=== PATIENT | male | born 1945 | race Caucasian/White ===

== ENCOUNTER 2022-01-29 14:15 | Emergency (ER) | payer OTHER, BC ==
[2022-01-29 14:40] VITALS: BP 131/75; PULSE 66; RESP 16; TEMP 97.8; BMI 26.1
[2022-01-29] MEDS ORDERED: ACETAMINOPHEN 325 MG TABLET (FP) PO ONE (15:16)
[2022-01-29] MEDS ORDERED: ACETAMINOPHEN 325 MG TABLET (FP) ONE (15:24)
== END 2022-01-29 16:50 | disposition home or self-care (01) ==
LOC: JERFT 14:15
DX: S01.21XA Laceration without foreign body of nose, initial encounter (principal); J34.2 Deviated nasal septum; W01.198A Fall on same level from slipping, tripping and stumbling with subsequent striking against other object, initial encounter
CPT/HCPCS: 70160-TC-FY; 99283-25

== ENCOUNTER 2022-05-24 22:53 | Inpatient (IN) | payer OTHER, BC ==
[2022-05-24] MEDS ORDERED: ACETAMINOPHEN 1000 MG/100 ML BAG IVPB ONE (23:10)
[2022-05-24] MEDS ORDERED: LACTATED RINGERS SOLUTION 1000 ML INFUS.BAG IV ONE (23:10)
[2022-05-24] MEDS ORDERED: ACETAMINOPHEN INJECTION 100 ML IVPB ONE (23:12)
[2022-05-24] MEDS ORDERED: CEFEPIME HCL/D5W 1 GM/50 ML BAG IVPB ONE (23:23)
[2022-05-24] MEDS ORDERED: VANCOMYCIN 1 GM in D5W (PRE-DOCKED) 1,000 MG/250 ML IVPB ONE (23:24)
[2022-05-24] MEDS ORDERED: AZITHROMYCIN IVPB 500 MG in DEXTROSE 5%-WATER - 250 ML IVPB ONE (23:24)
[2022-05-24] MEDS ORDERED: CEFEPIME 1 GM/100 ML BAG IVPB ONE (23:34)
[2022-05-24] MEDS ORDERED: VANCOMYCIN/WATER FOR INJ (PEG) 1,000 MG/200 ML BAG IVPB ONE (23:34)
[2022-05-24] MEDS ORDERED: ALBUTEROL SO4 2.5/IPRATROPIUM 0.5 INH SOL 3 ML VIAL.NEB. NEB ONE (23:34)
[2022-05-24] MEDS ORDERED: AZITHROMYCIN IVPB 500 MG/250 ML BAG IVPB ONE (23:52)
[2022-05-25 00:11] LABS: VENOUS O2 SATURATION 56.8 % (70-80); VENOUS PCO2 52.3 mmHg (38-52); VENOUS PH 7.271 (7.310-7.410)
[2022-05-25 00:13] LABS: BASO % 0.3 % (0-2.0); EOS % 3.3 % (0-4.5); HEMATOCRIT 41.2 % (35.4-49); HEMOGLOBIN 13.8 GM/dL (11.7-16.9); LYMPH % 13.5 % (8-40); MCH 30.7 pg (25.7-33.7); MCHC 33.5 g/dl (32.0-35.9); MEAN CELL VOLUME 91.6 fl (80-96); MEAN PLT VOLUME 6.7 fl (7.5-11.1); MONO % 6.5 % (3.8-10.2); NEUT % 76.4 % (42.8-82.8); PLATELET COUNT 221 10^3/uL (134-434); RDW 13.1 % (11.9-15.9); WHITE BLOOD COUNT 15.5 K/mm3 (4.0-10.0)
[2022-05-25 00:19] LABS: INR 0.98 (0.83-1.09); PROTHROMBIN TIME (PATIENT) 11.4 SEC (9.7-13.0)
[2022-05-25 00:21] LABS: ACTIVATED PTT 30.9 SECONDS (25.2-36.5)
[2022-05-25 00:29] LABS: CALCIUM 9.3 mg/dL (8.5-10.1)
[2022-05-25 00:30] LABS: ALBUMIN 3.9 g/dl (3.4-5.0); BLOOD UREA NITROGEN 24.7 mg/dL (7-18); MAGNESIUM 1.9 mg/dL (1.8-2.4)
[2022-05-25 00:33] LABS: CREATININE 1.3 mg/dL (0.55-1.3)
[2022-05-25 00:34] LABS: BILIRUBIN,TOTAL 0.3 mg/dL (0.2-1); TOT PROT 6.5 g/dl (6.4-8.2)
[2022-05-25 00:46] LABS: LACTIC ACID 2.4 mmol/L (0.4-2.0)
[2022-05-25] MEDS ORDERED: ALBUTEROL SO4 2.5/IPRATROPIUM 0.5 INH SOL 3 ML VIAL.NEB. NEB ONE (01:40)
[2022-05-25 03:58] LABS: LACTIC ACID 2.2 mmol/L (0.4-2.0); PH,URINE 5.5 (5.0-8.0); URINE APPEARANCE CLEAR; URINE BILIRUBIN NEGATIVE (NEGATIVE); URINE COLOR YELLOW; URINE GLUCOSE (UA) NEGATIVE (NEGATIVE); URINE KETONE NEGATIVE (NEGATIVE); URINE LEUK ESTERASE NEGATIVE (NEGATIVE); URINE NITRITE NEGATIVE (NEGATIVE); URINE PROTEIN NEGATIVE (NEGATIVE); URINE UROBILINOGEN 0.2 mg/dL (0.2-1.0)
[2022-05-25] MEDS: LACTATED RINGERS SOLUTION 1,000 ML/1,000 ML INFUS.BAG IV SCH ×2 (06:27→19:40)
[2022-05-25] MEDS: ENOXAPARIN NA (PORCINE) 40 MG/0.4 ML DISP.SYRIN SQ SCH (09:36)
[2022-05-25] MEDS: levETIRAcetam 500 MG TABLET (FP) PO SCH ×2 (09:36→21:04)
[2022-05-25] MEDS: ESCITALOPRAM OXALATE 20 MG TABLET PO SCH (09:36)
[2022-05-25] MEDS: LEVOTHYROXINE NA 75 MCG TABLET (FP) PO SCH (09:36)
[2022-05-25] MEDS ORDERED: VANCOMYCIN 1 GM in D5W (PRE-DOCKED) 1,000 MG/250 ML IVPB SCH (10:00)
[2022-05-25] MEDS ORDERED: AZITHROMYCIN 250 MG TABLET PO SCH (10:00)
[2022-05-25] MEDS: lamoTRIgine 100 MG TABLET PO SCH (10:19)
[2022-05-25] MEDS: COLCHICINE 0.6 MG TAB PO SCH (10:19)
[2022-05-25 11:50] LABS: BASO % 0.4 % (0-2.0); EOS % 2.3 % (0-4.5); HEMATOCRIT 35.3 % (35.4-49); HEMOGLOBIN 11.7 GM/dL (11.7-16.9); MCH 30.2 pg (25.7-33.7); MCHC 33.2 g/dl (32.0-35.9); MEAN CELL VOLUME 91.1 fl (80-96); MEAN PLT VOLUME 6.8 fl (7.5-11.1); NEUT % 77.3 % (42.8-82.8); PLATELET COUNT 207 10^3/uL (134-434); RBC 3.88 M/mm3 (4.00-5.60); RDW 13.5 % (11.9-15.9); WHITE BLOOD COUNT 17.7 K/mm3 (4.0-10.0)
[2022-05-25 12:11] LABS: ALBUMIN 3.1 g/dl (3.4-5.0); BLOOD UREA NITROGEN 24.2 mg/dL (7-18); CALCIUM 8.4 mg/dL (8.5-10.1)
[2022-05-25 12:14] LABS: CREATININE 1.1 mg/dL (0.55-1.3)
[2022-05-25 12:16] LABS: BILIRUBIN,TOTAL 0.7 mg/dL (0.2-1); TOT PROT 5.4 g/dl (6.4-8.2)
[2022-05-25 13:36] VITALS: BMI 26.2
[2022-05-25] MEDS ORDERED: ROSUVASTATIN CA 10 MG TABLET PO SCH (22:00)
[2022-05-26] MEDS: LACTATED RINGERS SOLUTION 1,000 ML/1,000 ML INFUS.BAG IV SCH (05:15)
[2022-05-26] MEDS: LEVOTHYROXINE NA 75 MCG TABLET (FP) PO SCH (06:40)
[2022-05-26 09:21] LABS: BASO % 0.5 % (0-2.0); HEMATOCRIT 31.7 % (35.4-49); HEMOGLOBIN 10.9 GM/dL (11.7-16.9); LYMPH % 18.7 % (8-40); MCH 31.2 pg (25.7-33.7); MCHC 34.5 g/dl (32.0-35.9); MEAN CELL VOLUME 90.7 fl (80-96); MEAN PLT VOLUME 7.2 fl (7.5-11.1); MONO % 9.7 % (3.8-10.2); NEUT % 65.1 % (42.8-82.8); PLATELET COUNT 183 10^3/uL (134-434); RBC 3.49 M/mm3 (4.00-5.60); RDW 13.3 % (11.9-15.9); WHITE BLOOD COUNT 11.6 K/mm3 (4.0-10.0)
[2022-05-26 09:46] LABS: CALCIUM 8.1 mg/dL (8.5-10.1)
[2022-05-26 09:47] LABS: BLOOD UREA NITROGEN 16.8 mg/dL (7-18)
[2022-05-26 09:52] LABS: CREATININE 0.9 mg/dL (0.55-1.3)
[2022-05-26] MEDS ORDERED: CEFTRIAXONE 1 GM in DEXTROSE 5%-WATER - 50 ML IVPB ONE (10:00)
[2022-05-26] MEDS ORDERED: AZITHROMYCIN 250 MG TABLET PO SCH (10:00)
[2022-05-26] MEDS ORDERED: ESCITALOPRAM OXALATE 10 MG TABLET ONE (10:29)
[2022-05-26] MEDS: ESCITALOPRAM OXALATE 20 MG TABLET PO SCH (10:35)
[2022-05-26] MEDS: ENOXAPARIN NA (PORCINE) 40 MG/0.4 ML DISP.SYRIN SQ SCH (10:35)
[2022-05-26] MEDS: COLCHICINE 0.6 MG TAB PO SCH (10:36)
[2022-05-26] MEDS: levETIRAcetam 500 MG TABLET (FP) PO SCH (10:36)
[2022-05-26] MEDS: lamoTRIgine 100 MG TABLET PO SCH (11:24)
[2022-05-26 14:34] VITALS: BP 105/52; PULSE 61; RESP 18; TEMP 97.9
[2022-05-27] MEDS ORDERED: CEFTRIAXONE 1 GM in DEXTROSE 5%-WATER - 50 ML IVPB SCH (10:00)
== END 2022-05-26 16:18 | disposition home or self-care (01) | DRG 871 ==
LOC: JER 22:53 → JERBED 05-25 03:35 → J5S 05-25 07:59 → J6S 05-26 10:04
PROVIDERS: ADMIT Internal Medicine; ATTEND Internal Medicine
DX: A41.9 Sepsis, unspecified organism (principal); J12.3 Human metapneumovirus pneumonia; C85.90 Non-Hodgkin lymphoma, unspecified, unspecified site; E87.20 Acidosis, unspecified; J98.11 Atelectasis; G40.909 Epilepsy, unspecified, not intractable, without status epilepticus; E03.9 Hypothyroidism, unspecified; E78.5 Hyperlipidemia, unspecified
CPT/HCPCS: 0241U-QW; 36415; 71045-TC-FY; 71275-TC; 80048; 80053; 81003; 82803; 83605; 83735; 84100; 84484; 85025; 85610; 85730; 86850; 86900; 86901; 87040; 87070; 87086; 87205; 87633; 87899; 93005; 93010; 94761; 99285-25; Q9967